=== PATIENT | female | born 1985 | race Caucasian/White ===

== ENCOUNTER 2018-05-17 16:04 | Emergency (ER) | payer SELFPAY | END 2018-05-17 17:48 | disposition left against medical advice (07) | LOC: E/R 17:48 | DX: Z53.21 Procedure and treatment not carried out due to patient leaving prior to being seen by health care provider (principal) ==

== ENCOUNTER 2018-05-31 08:46 | Emergency (ER) | payer SELFPAY ==
[2018-05-31] MEDS: ONDANSETRON (ODT) 4 MG TAB ODT (09:34)
[2018-05-31] MEDS: HYDROCODONE/APAP (10/325) TAB PO (09:34)
== END 2018-05-31 10:16 | disposition home or self-care (01) ==
LOC: E/R 08:46
DX: D57.00 Hb-SS disease with crisis, unspecified (principal); R40.2252 Coma scale, best verbal response, oriented, at arrival to emergency department; R40.2362 Coma scale, best motor response, obeys commands, at arrival to emergency department; R40.2142 Coma scale, eyes open, spontaneous, at arrival to emergency department; J45.909 Unspecified asthma, uncomplicated
CPT/HCPCS: 99283

== ENCOUNTER 2018-11-29 03:23 | Emergency (ER) | payer SELFPAY ==
[2018-11-29] MEDS ORDERED: ONDANSETRON (ODT) 4 MG TAB ODT (03:46)
[2018-11-29] MEDS: ONDANSETRON 4 MG INJ IV (03:49)
[2018-11-29] MEDS: DIPHENHYDRAMINE 50 MG INJ IV (03:49)
[2018-11-29] MEDS: HYDROmorphONE 1 MG/ML SYG IV (03:49)
[2018-11-29] MEDS: SOD CHLORIDE 0.9% 1,000 ML IV (04:17)
[2018-11-29 04:23] LABS: ADD MAN DIFF? NO
[2018-11-29 04:25] LABS: WHITE BLOOD COUNT 6.2 10^3/ul (4.8-10.8)
[2018-11-29 04:25] LABS: BASOPHILS % 0.6 % (0.0-2.0); EOSINOPHILS # 0.2 10^3/ul (0.0-0.5); EOSINOPHILS % 2.9 % (0.0-7.0); HEMATOCRIT 27.9 % (37.0-47.0); HEMOGLOBIN 8.2 g/dl (12.0-16.0); LYMPHOCYTES # 2.7 10^3/ul (0.8-2.9); LYMPHOCYTES % 43.1 % (15.0-51.0); MEAN CORPUSCULAR HGB CONC 29.4 g/dl (32.0-37.0); MEAN CORPUSCULAR VOLUME 74.8 fl (82.0-101.0); MONOCYTE # 0.4 10^3/ul (0.3-0.9); MONOCYTES % 5.9 % (0.0-11.0); NEUTROPHIL # 2.9 10^3/ul (1.6-7.5); NEUTROPHILS % 47.3 % (39.0-77.0); PLATELET COUNT 314 10^3/UL (140-415); RED BLOOD COUNT 3.73 10^6/ul (4.20-5.40); RED CELL DISTRIBUTION WIDTH 16.1 % (11.5-14.5)
[2018-11-29 04:43] LABS: ALANINE AMINOTRANSFERASE 16 IU/L (13-69); ALBUMIN 4.2 g/dl (3.3-4.9); ALBUMIN/GLOBULIN RATIO 1.27; ALKALINE PHOSPHATASE 85 IU/L (42-121); ANION GAP 10 (5-13); ASPARTATE AMINO TRANSFERASE 44 IU/L (15-46); BILIRUBIN,INDIRECT 0.3 mg/dl (0-1.1); BILIRUBIN,TOTAL 0.3 mg/dl (0.2-1.3); BLOOD UREA NITROGEN 16 mg/dl (7-20); CALCIUM 9.2 mg/dl (8.4-10.2); CARBON DIOXIDE 25 mmol/L (21-31); CHLORIDE 108 mmol/L (97-110); CREATININE 0.84 mg/dl (0.44-1.00); Estimated GFR > 60 mL/min (>60); GLUCOSE 91 mg/dl (70-220); LIPASE 147 U/L (23-300); POTASSIUM 4.1 mmol/L (3.5-5.1); SODIUM 143 mmol/L (135-144); TOTAL PROTEIN 7.5 g/dl (6.1-8.1)
[2018-11-29] MEDS: HYDROmorphONE 2 MG/ML SYG IM (04:47)
[2018-11-29 05:02] LABS: RETICULOCYTE RBC 3.66
[2018-11-29 05:02] LABS: RETICULOCYTE COUNT # 0.051 X10^6 (0.020-0.110); RETICULOCYTE COUNT % 1.4 % (0.5-1.5)
== END 2018-11-29 06:30 | disposition home or self-care (01) ==
LOC: E/R 03:23
DX: D57.00 Hb-SS disease with crisis, unspecified (principal); F17.210 Nicotine dependence, cigarettes, uncomplicated
CPT/HCPCS: 36415; 80053; 83690; 85025; 85045; 96372; 96374; 96375; 99284-25

== ENCOUNTER 2018-12-09 05:16 | Emergency (ER) | payer SELFPAY ==
[2018-12-09] MEDS: ONDANSETRON (ODT) 4 MG TAB ODT ×2 (06:32→08:08)
[2018-12-09] MEDS: DIPHENHYDRAMINE 50 MG INJ IM ×2 (06:33→08:08)
[2018-12-09] MEDS: HYDROmorphONE 2 MG/ML SYG IM ×2 (06:33→08:09)
[2018-12-09 07:07] LABS: ADD MAN DIFF? NO
[2018-12-09 07:13] LABS: BASOPHILS % 0.4 % (0.0-2.0); EOSINOPHILS # 0.2 10^3/ul (0.0-0.5); EOSINOPHILS % 2.8 % (0.0-7.0); HEMATOCRIT 26.5 % (37.0-47.0); HEMOGLOBIN 7.7 g/dl (12.0-16.0); LYMPHOCYTES # 2.8 10^3/ul (0.8-2.9); LYMPHOCYTES % 53.9 % (15.0-51.0); MEAN CORPUSCULAR HEMOGLOBIN 21.9 pg (29.0-33.0); MEAN CORPUSCULAR HGB CONC 29.1 g/dl (32.0-37.0); MEAN CORPUSCULAR VOLUME 75.3 fl (82.0-101.0); MEAN PLATELET VOLUME 10.1 fl (7.4-10.4); MONOCYTE # 0.4 10^3/ul (0.3-0.9); MONOCYTES % 7.4 % (0.0-11.0); NEUTROPHIL # 1.9 10^3/ul (1.6-7.5); NEUTROPHILS % 35.5 % (39.0-77.0); PLATELET COUNT 301 10^3/UL (140-415); RED BLOOD COUNT 3.52 10^6/ul (4.20-5.40); RED CELL DISTRIBUTION WIDTH 16.1 % (11.5-14.5); RETICULOCYTE COUNT # 0.064 X10^6 (0.020-0.110); RETICULOCYTE COUNT % 1.8 % (0.5-1.5); RETICULOCYTE RBC 3.52
[2018-12-09 07:13] LABS: WHITE BLOOD COUNT 5.3 10^3/ul (4.8-10.8)
[2018-12-09 07:31] LABS: ALANINE AMINOTRANSFERASE 21 IU/L (13-69); ALBUMIN 3.5 g/dl (3.3-4.9); ALBUMIN/GLOBULIN RATIO 1.12; ALKALINE PHOSPHATASE 77 IU/L (42-121); ANION GAP 6 (5-13); ASPARTATE AMINO TRANSFERASE 31 IU/L (15-46); BILIRUBIN,INDIRECT 0.3 mg/dl (0-1.1); BILIRUBIN,TOTAL 0.3 mg/dl (0.2-1.3); BLOOD UREA NITROGEN 15 mg/dl (7-20); CALCIUM 8.9 mg/dl (8.4-10.2); CARBON DIOXIDE 27 mmol/L (21-31); CHLORIDE 108 mmol/L (97-110); CREATININE 0.83 mg/dl (0.44-1.00); Estimated GFR > 60 mL/min (>60); GLUCOSE 80 mg/dl (70-220); POTASSIUM 4.2 mmol/L (3.5-5.1); SODIUM 141 mmol/L (135-144); TOTAL PROTEIN 6.6 g/dl (6.1-8.1)
== END 2018-12-09 10:02 | disposition home or self-care (01) ==
LOC: E/R 05:16
DX: D57.219 Sickle-cell/Hb-C disease with crisis, unspecified (principal)
CPT/HCPCS: 80053; 85025; 85045; 96372; 99284-25

== ENCOUNTER 2018-12-15 10:43 | Emergency (ER) | payer SELFPAY ==
[2018-12-15] MEDS: ONDANSETRON (ODT) 4 MG TAB ODT (11:07)
[2018-12-15] MEDS: HYDROCODONE/APAP (10/325) TAB PO (11:08)
== END 2018-12-15 11:00 | disposition home or self-care (01) ==
LOC: E/R 11:00
DX: G89.29 Other chronic pain (principal); F17.210 Nicotine dependence, cigarettes, uncomplicated
CPT/HCPCS: 99283

== ENCOUNTER 2018-12-20 16:14 | Emergency (ER) | payer SELFPAY ==
[2018-12-20] MEDS: IBUPROFEN 800 MG TAB PO (17:17)
== END 2018-12-20 17:19 | disposition home or self-care (01) ==
LOC: FTE 16:14
DX: G89.4 Chronic pain syndrome (principal); F17.210 Nicotine dependence, cigarettes, uncomplicated
CPT/HCPCS: 99282

== ENCOUNTER 2019-01-06 02:36 | Emergency (ER) | payer SELFPAY ==
[2019-01-06] MEDS: HYDROmorphONE 0.5 MG/0.5 ML SYG IM (03:08)
[2019-01-06] MEDS: DIPHENHYDRAMINE 50 MG INJ IM (03:08)
[2019-01-06] MEDS: ONDANSETRON (ODT) 4 MG TAB ODT (03:08)
== END 2019-01-06 03:34 | disposition home or self-care (01) ==
LOC: E/R 02:36
DX: D57.1 Sickle-cell disease without crisis (principal); Z87.891 Personal history of nicotine dependence
CPT/HCPCS: 96372; 99284-25

== ENCOUNTER 2019-01-12 08:24 | Emergency (ER) | payer SELFPAY ==
[2019-01-12] MEDS: HYDROmorphONE 2 MG/ML SYG IM (09:00)
== END 2019-01-12 12:28 | disposition home or self-care (01) ==
LOC: E/R 08:24
DX: D57.00 Hb-SS disease with crisis, unspecified (principal); Z87.891 Personal history of nicotine dependence
CPT/HCPCS: 96372; 99284-25

== ENCOUNTER 2019-01-21 18:58 | Emergency (ER) | payer SELFPAY ==
[2019-01-21] MEDS: DIPHENHYDRAMINE 50 MG INJ IM (20:47)
[2019-01-21] MEDS: HYDROmorphONE 2 MG/ML SYG IM (20:47)
[2019-01-21] MEDS: ONDANSETRON (ODT) 4 MG TAB ODT (20:48)
== END 2019-01-21 21:23 | disposition home or self-care (01) ==
LOC: E/R 18:58
DX: D57.00 Hb-SS disease with crisis, unspecified (principal)
CPT/HCPCS: 96372; 99284-25

== ENCOUNTER 2019-02-20 08:41 | Emergency (ER) | payer SELFPAY | END 2019-02-20 09:57 | disposition home or self-care (01) | LOC: E/R 08:41 | DX: M54.9 Dorsalgia, unspecified (principal); M79.606 Pain in leg, unspecified | CPT/HCPCS: 99283 ==